=== PATIENT | female | born 2000 | race African-American/Black ===

== ENCOUNTER 2023-07-03 07:49 | Emergency (ER) | payer OTHER ==
[~2023-07-03] VITALS: Ht 167.6 cm; Wt 55.0 kg
[2023-07-03 08:07] VITALS: O2SAT 98
[2023-07-03] MEDS ORDERED: KETOROLAC 60MG/2ML VIAL IM STA (08:42)
[2023-07-03] MEDS ORDERED: ACETAMINOPHEN 325MG TABLET PO ONE (08:45)
[2023-07-03] MEDS ORDERED: DIAZEPAM 5 MG TABLET PO ONE (10:00)
[2023-07-03] MEDS ORDERED: ACET-2708 MT (10:36)
[2023-07-03 11:00] VITALS: BP 122/76; PULSE 69; RESP 20; TEMP 98.4
== END 2023-07-03 11:20 | disposition home or self-care (01) ==
LOC: ER 08:24
DX: M94.0 Chondrocostal junction syndrome [Tietze] (principal); M62.838 Other muscle spasm
CPT/HCPCS: 81025; 71045; 93005; 96372; 99283; J1885; Z7610